=== PATIENT | male | born 1955 | race Caucasian/White ===

== ENCOUNTER 2017-04-26 08:43 | Day surgery (SDC) | payer BC ==
[~2017-04-26 08:43] MED LIST: ACETAMINOPHEN 1,000 MG/100 ML BTL IV ONE
--- NOTE | 2017-04-26 13:10 | Operative Note ---
DATE OF SURGERY: 04/26/2017 Surgeon: Vamsi Green DO PREOPERATIVE DIAGNOSIS: Torn medial meniscus of the right knee. POSTOPERATIVE DIAGNOSES: 1. Torn medial meniscus of the right knee. 2. Medial mid patellar plica right knee. 3. Chondromalacia of the patella and trochlea, right knee. OPERATION: 1. Arthroscopic partial medial meniscectomy, right knee. 2. Arthroscopic resection medial mid patella plica, right knee. DESCRIPTION OF PROCEDURE: This 62-year-old male was taken to the operating room, placed in the supine position on the operating room table. General anesthesia was induced and the right lower extremity was elevated. It was exsanguinated and the tourniquet inflated to 300 mmHg. Arthroscopic knee ferrari applied. Right knee prepped with Hibiclens and draped in the usual sterile fashion. An inferolateral portal was established for the 4 mm arthroscope and initial evaluation of the joint demonstrated normal appearance of the suprapatellar pouch, but there was a medial mid patellar plica which was resected through an inferomedial portal. There was minimal grade 2 chondromalacia of the patella and trochlea but no gross instability of that articular cartilage was present and it was not further disturbed. The medial compartment was entered, and a severe complex tear of the posterior horn of the medial meniscus was present. That tear extended from the posterior insertion around to about the 3-o'clock position, and utilizing the basket forceps and rotating shaver, we resected back to the apex of the tear which was at approximately the 12:30 to 1-o'clock position. We then smoothed and trimmed and balanced with the rotating shaver. Then re-probing confirmed restored stability to the medial meniscus. The intracondylar notch was examined and found to be normal. The lateral compartment was entered, and probing of the articular cartilage did not reveal any pathology. The meniscus was normal. The joint was then copiously irrigated and suctioned. The instruments were removed. The portals infiltrated with 0.25% Marcaine with epinephrine. Sterile dressings were applied. Tourniquet and knee ferrari released. The patient taken to the recovery room in satisfactory condition. GROSS PATHOLOGY: The patient demonstrated a complex tear of the posterior horn and body of the medial meniscus and chondromalacia of the patella and trochlea grade 2 with no instability, and thickened fibrotic medial mid patella plica was present as described. CC: BONITA TORRES MD [facility]
[2017-04-26] MEDS ORDERED: FAMOTIDINE 20MG TABLET PO ONE (13:37)
[2017-04-26] MEDS ORDERED: MECLIZINE 25 MG TABLET PO ONE (13:37)
[2017-04-26] MEDS ORDERED: METOCLOPRAMIDE 10 MG TABLET PO ONE (13:37)
[2017-04-26] MEDS ORDERED: HYDROCODONE/APAP 7.5/325MG TABLET PO ONE (13:37)
[2017-04-26] MEDS ORDERED: BUPIVACAINE 0.25% W/EPI MPF 30ML VIAL IVP ONE (15:29)
[2017-04-26] MEDS ORDERED: SEVOFLURANE 250 ML INH ONE (15:37)
[2017-04-26] MEDS ORDERED: PROPOFOL 10 MG/ML VIAL IV ONE (15:37)
[2017-04-26] MEDS ORDERED: KETOROLAC 30 MG/ML VIAL IVP ONE (15:37)
[2017-04-26] MEDS ORDERED: LIDOCAINE 2% MDV (20MG/ML) 20ML VIAL IV ONE (15:37)
== END 2017-04-26 11:23 | disposition home or self-care (01) ==
LOC: SUR 08:43
PROVIDERS: ATTEND Orthopaedic Surgery
DX: S83.241A Other tear of medial meniscus, current injury, right knee, initial encounter (principal); Z85.46 Personal history of malignant neoplasm of prostate; K21.9 Gastro-esophageal reflux disease without esophagitis; M94.261 Chondromalacia, right knee
CPT/HCPCS: 29881; 01400; J1885